=== PATIENT | male | born 1995 | race Caucasian/White ===

== ENCOUNTER 2024-11-12 20:23 | Emergency (ER) | payer OTHER ==
[~2024-11-12] VITALS: Ht 177.8 cm; Wt 82.0 kg
[2024-11-12 21:02] VITALS: O2SAT 97
[2024-11-12] MEDS ORDERED: ACET-2708 MT (22:11)
[2024-11-12] MEDS ORDERED: NAPR-679 MT (22:11)
[2024-11-12] MEDS: KETOROLAC 15MG/ML VIAL IM ONE (22:39)
[2024-11-12] MEDS: ACETAMINOPHEN 325MG TABLET PO ONE (22:40)
[2024-11-12 22:58] VITALS: BP 109/69; PULSE 79; RESP 13; TEMP 36.7; O2SAT 96
== END 2024-11-12 23:00 | disposition home or self-care (01) ==
LOC: ER 20:23
DX: S43.102A Unspecified dislocation of left acromioclavicular joint, initial encounter (principal); W18.39XA Other fall on same level, initial encounter; Y93.89 Activity, other specified; Y92.89 Other specified places as the place of occurrence of the external cause; Y99.8 Other external cause status
CPT/HCPCS: 99283; 73030; 96372; J1885